=== PATIENT | male | born 1985 | race Caucasian/White ===

== ENCOUNTER 2025-01-31 11:37 | Inpatient (IN) | payer OTHER ==
[2025-01-31] MEDS ORDERED: NICOTINE POLACRILEX 4 MG GUM BUC PRN (12:33)
[2025-01-31] MEDS ORDERED: LOPERAMIDE HCL 2 MG CAPSULE PO PRN (12:33)
[2025-01-31] MEDS ORDERED: NALOXONE (NARCAN) HCL 4 MG/0.1 ML SPRAY NS PRN (12:33)
[2025-01-31] MEDS ORDERED: BENZOCAINE/MENTHOL (CHLORASEPTIC ) LOZENGE MM PRN (12:33)
[2025-01-31] MEDS ORDERED: IBUPROFEN 400 MG TABLET (FP) PO PRN (12:33)
[2025-01-31] MEDS ORDERED: NALOXONE HCL 0.4 MG/ML VIAL IVPUSH PRN (12:33)
[2025-01-31] MEDS ORDERED: METHOCARBAMOL 500 MG TABLET PO PRN (12:33)
[2025-01-31] MEDS ORDERED: MAGNESIUM HYDROX 2400MG/30ML ORAL SUSPENSION 30 ML CUP PO PRN (12:33)
[2025-01-31] MEDS ORDERED: NICOTINE POLACRILEX 4 MG LOZENGE BC PRN (12:33)
[2025-01-31] MEDS ORDERED: MAG HYDROX/AL HYDROX/SIMETH 30 ML UNIT-DOSE CUP PO PRN (12:33)
[2025-01-31] MEDS ORDERED: BENZONATATE 200 MG CAPSULE PO PRN (12:33)
[2025-01-31] MEDS ORDERED: guaiFENesin 600 MG TABLET.ER (FP) PO PRN (12:33)
[2025-01-31] MEDS ORDERED: hydrOXYzine PAMOATE 25 MG CAPSULE (FP) PO PRN (12:33)
[2025-01-31] MEDS ORDERED: POLYETHYLENE GLYCOL (HEALTHYLAX) 3350 17 GM PACKET PO PRN (12:33)
[2025-01-31] MEDS: ACETAMINOPHEN 325 MG TABLET (FP) PO PRN (17:43)
[2025-01-31] MEDS: MIRTAZAPINE 15 MG TABLET (FP) PO SCH (21:25)
[2025-01-31] MEDS: MELATONIN 5 MG TABLETS PO SCH (21:26)
[2025-01-31] MEDS: THIAMINE 100 MG TABLET PO SCH (21:26)
[2025-02-01] MEDS: NICOTINE 14 MG/24 HOURS TOPICAL PATCH TD SCH (10:02)
[2025-02-01] MEDS: methaDONE HCL 40 MG DISPERSABLE TABLET PO SCH (10:02)
[2025-02-01] MEDS: PRENATAL VITAMINS W/ FOLIC ACID TABLET (FP) PO SCH (10:02)
[2025-02-02 12:12] LABS: HCV DIAGNOSTIC IN-HOUSE W/RFLX NON-REACTIVE (NONREACTIVE); HIV INTERPRETATION NEGATIVE (NEGATIVE)
[2025-02-03] MEDS: methaDONE HCL 40 MG DISPERSABLE TABLET PO SCH (06:26)
[2025-02-06] MEDS: METHOCARBAMOL 500 MG TABLET PO PRN (19:48)
[2025-02-08] MEDS: hydrOXYzine PAMOATE 50 MG CAPSULE (FP) PO PRN (09:42)
[2025-02-10] MEDS: methaDONE HCL 40 MG DISPERSABLE TABLET PO SCH (06:20)
[2025-02-17] MEDS: methaDONE HCL 40 MG DISPERSABLE TABLET PO SCH (08:19)
[2025-02-24] MEDS: IBUPROFEN 600 MG TABLET (FP) PO PRN (09:58)
[2025-02-25 06:51] VITALS: RESP 18; TEMP 97.3
[2025-02-25 09:14] VITALS: BP 122/83; PULSE 92
== END 2025-02-25 10:54 | disposition home or self-care (01) | DRG 772 ==
LOC: YASAS 11:37 → Y5N 11:39
PROVIDERS: ADMIT Psychiatry & Neurology Pain Medicine; ATTEND Psychiatry & Neurology Pain Medicine
PROC: HZ42ZZZ Group Counseling for Substance Abuse Treatment, Cognitive-Behavioral (ICD-10-PCS; principal; 2025-01-31)
DX: F14.10 Cocaine abuse, uncomplicated (principal); F13.20 Sedative, hypnotic or anxiolytic dependence, uncomplicated; F11.20 Opioid dependence, uncomplicated; F17.210 Nicotine dependence, cigarettes, uncomplicated; F19.280 Other psychoactive substance dependence with psychoactive substance-induced anxiety disorder; F19.282 Other psychoactive substance dependence with psychoactive substance-induced sleep disorder
CPT/HCPCS: 36415; 86803; 87389